=== PATIENT | female | born 1985 | race Caucasian/White ===

== ENCOUNTER 2016-09-23 13:58 | Emergency (ER) | payer MEDICAID ==
[~2016-09-23] VITALS: Ht 157.5 cm; Wt 65.1 kg
[~2016-09-23 13:58] MED LIST: ACET500C5 PO; AMO500 PO; AZIT250T94 PO; PRED20TA PO; UDROBDM PO
[2016-09-23 14:12] VITALS: Ht 157.5 cm; Wt 65.1 kg
[2016-09-23] MEDS ORDERED: SODI30SP2 NS (15:11)
[2016-09-23] MEDS ORDERED: AZIT500T3 PO (15:11)
[2016-09-23] MEDS ORDERED: IBUP400T22 PO (15:11)
--- NOTE | 2016-09-23 15:16 | ERD ---
ER Documentation Chief Complaint Date/Time DATE: 09/23/16 TIME: 15:[address],TOBIAS SINCE LAST NIGHT HPI Patient is a 31-year-old female who presents to the ED with sore throat, cough, runny nose and body aches 1 day. She states that both of her kids have had similar symptoms at home. She states that she had tactile fever at home, denies chills. Denies abdominal pain, nausea, vomiting, diarrhea. States that she has pain when she swallows however she denies difficulty breathing. Denies chest pain, shortness of breath or leg pain or swelling. Denies hemoptysis or night sweats. She states that she took 1 dose of amoxicillin yesterday from her previous prescription she had. Has not tried any other medication. Denies dizziness or headache. ROS All systems reviewed and are negative except as per history of present illness. Medications Home Meds Active Scripts Sodium Chloride (Saline Nasal [place]) 30 Ml [place], 30 ML NS BID for 14 Days, SPRAY Prov:GUS BARNETT PA-C 09/23/16 Ibuprofen* (Motrin*) 400 Mg Tab, 400 MG PO Q6, #30 TAB Prov:GUS BARNETT PA-C 09/23/16 Azithromycin* (Zithromax*) 500 Mg Tablet, 500 MG PO DAILY for 5 Days, TAB Prov:GUS BARNETT PA-C 09/23/16 Prednisone* (Prednisone*) 20 Mg Tab, 40 MG PO DAILY for 4 Days, TAB Prov:PAL HUERTA MD 04/06/16 Azithromycin* (Zithromax*) 250 Mg Tablet, 250 MG PO .ZPACK DIRECTED, #6 TAB TAKE 500 MG (2 TABS) THE FIRST DAY THEN 250 MG (1 TAB) DAYS 2-5 Prov:PAL HUERTA MD 04/06/16 Acetaminophen* (Tylophen*) 500 Mg Capsule, 1 CAP PO Q6H Y for PAIN AND OR ELEVATED TEMP for 7 Days, #30 CAP 0 Refills Prov:JUNE WINTER PA-C 04/01/16 Guaifenesin-Dextromethorphan* (Robitussin* DM) 100MG/10MG/5ML Syrup, 5 ML PO Q6H Y for COUGH for 6 Days, #120 ML 0 Refills Prov:MOYJUNE ESTRADA 04/01/16 Amoxicillin* (Amoxicillin*) 500 Mg Cap, 500 MG PO TID for 7 Days, #21 CAP 0 Refills Prov:JUNE WINTER SEAN 04/01/16 PMhx/Soc History of Surgery: Yes (caesarian section x 2) Anesthesia Reaction: No Hx Neurological Disorder: No Hx Respiratory Disorders: No Hx Cardiac Disorders: No Hx Psychiatric Problems: No Hx Miscellaneous Medical Probl: No Hx Alcohol Use: No Hx Substance Use: No Hx Tobacco Use: No FmHx Family History: No coronary disease, No diabetes, No other Physical Exam Vitals Vital Signs Date Time Temp Pulse Resp B/P Pulse Ox O2 Delivery O2 Flow Rate FiO2 09/23/16 14:12 98.5 70 20 115/70 99 Physical Exam GENERAL: Well-developed, well-nourished female. Appears in no acute distress. HEAD: Normocephalic, atraumatic. EYES: Pupils are equally reactive bilaterally. EOMs grossly intact. No conjunctival erythema. ENT: Moist mucous membranes. No uvula deviation. No kissing tonsils. No exudates. Erythematous throat. NECK: Supple. No lymphadenopathy or thyromegaly. No meningismus. negative kernig. negative brudinski. LUNG: Clear to auscultation bilaterally. No rhonchi, wheezing, rales or coarse breath sounds. HEART: Regular rate and rhythm. No murmurs, rubs or gallops. SKIN: Normal color. Warm and dry. No rashes or lesions. Capillary refill < 2 seconds. Cranial nerves II through XII intact. Procedures/MDM ER COURSE: I kept the patient and/or family informed of laboratory and diagnostic imaging results throughout the emergency room course. MEDICAL DECISION MAKING: This is a 31-year-old female who presents with sore throat, cough, runny nose and body aches 1 day. Vital signs were reviewed. Patient is afebrile. Patient is not hypoxic. Patient is not toxic or ill-appearing. Patient likely has pharyngitis, bacterial versus viral etiology. Low suspicion for peritonsillar abscess, mononucleosis, dental abscess. Low suspicion for pneumonia, PE, pneumothorax, ACS, epiglottitis, obstruction, TB, pertussis, meningitis, sepsis. Low suspicion for intracranial hemorrhage, meningitis, intracranial mass, concussion, temporal arteritis, stroke, elevated intracranial pressure, seizure. DISCHARGE: At this time, patient is stable for discharge and outpatient management with no new complaints during the ER course. Patient was sent home with azithromycin, Motrin and saline nasal spray.. Patient will be discharged home with instructions to recheck for new or worsening symptoms such as fever, nausea, weakness, LOC and to follow up with primary care in the next 1-2 days. Patient was advised to return to the ER for any new or worsening symptoms. Plan was discussed and patient and/or family understands and agrees. Home instructions were given. Departure Diagnosis: Primary Impression: URI, acute Condition: Stable Patient Instructions: Pharyngitis, Strep (Presumed) Additional Instructions: Call your primary care doctor TOMORROW for an appointment during the next 1-2 days.See the doctor sooner or return here if your condition worsens before your appointment time. GUS BARNETT PA-C Sep 23, 2016 15:16
== END 2016-09-23 17:50 | disposition home or self-care (01) ==
LOC: E/R 13:58
DX: J06.9 Acute upper respiratory infection, unspecified (principal)
CPT/HCPCS: 99283